=== PATIENT | female | born 1980 | race African-American/Black ===

== ENCOUNTER → 2017-05-05 | Day surgery (SDC) | payer OTHER ==
--- NOTE | 2017-04-28 10:16 | MH ---
cc: FAZAL WEBSTER DATE OF ADMISSION: 05/05/2017 DATE OF : 03/24 ADMITTING DIAGNOSIS: Condition is embedded intrauterine device. She is scheduled for removal under anesthesia. HISTORY OF PRESENT ILLNESS: The patient is a 37-year-old female P2 with Kori placed that is embed into the intrauterine cavity and causing her discomfort with intercourse this is confirmed on ultrasound. She is also having continued spotting. She is otherwise in excellent health other than she is on Synthroid 100 mics a day and has had endocrinopathies which is closely followed by Dr. Youngblood. She is currently a hospitalist and works long hours, takes care of her two children and she is to an orthopedic surgeon. She handles her stress and states is manageable at this time, she does not smoke, drink or use illicit drugs. FAMILY HISTORY: Family history is noncontributory. REVIEW OF SYSTEMS She has no complaints of any bowel or bladder. She does state that intercourse is uncomfortable. PHYSICAL EXAMINATION: VITAL SIGNS: On physical exam her height 5'5" Her weight is 144, blood pressure is 110/68. NECK: She has no thyroid enlargement. LUNGS: Her lungs are clear to auscultation and percussion. HEART: Rate and rhythm are regular without murmur, heave, thrill. ABDOMEN: Benign. GYNECOLOGY: Perineum is estrogenized, vault is elevated, cervix is multiparous. Uterus is small, the string is not seen. Ovaries are not palpable. IMPRESSION/PLAN At this time is embedded IUD that was not amendable to our office extraction, she is therefore scheduled to have this on either under MAC or general, her choice. The risks, benefits, expectations have been discussed in detail. She has signed consents and scheduled for this. MD SAVANNAH Ly/ /9:29 AM /9:37 AM
[~2017-05-05] MED LIST: ACETAMINOPHEN 1000 MG/100 ML 100 ML IV ONE; IBUP-232 PO; KETOROLAC TROMETHAMINE 30 MG/ML (IVP) VIAL IV PUSH ONE; LACTATED RINGER'S 1000 ML INJ 1,000 ML ONE; LEVO100T5 PO; MIDAZOLAM HCL 2 MG/2 ML VIAL ONE; ONDANSETRON HCL 4 MG/2 ML VIAL IV PUSH ONE; PROMETHAZINE INJ 25 MG/ML VIAL ONE; PROPOFOL 200 MG/20 ML AMP IV ONE; ceFAZolin INJ 1,000 MG VIAL ONE
--- NOTE | 2017-05-07 10:02 | MP ---
cc: DARINJANET DATE OF SURGERY: 05/05/2017 PREOPERATIVE DIAGNOSIS IUD imbedded into the myometrium but in the intrauterine cavity on ultrasound. POSTOPERATIVE DIAGNOSIS IUD perforating the uterus and in the abdominal cavity. PROCEDURE PERFORMED Diagnostic hysteroscopy and evaluation of the endometrium and diagnostic laparoscopy and removal of Mirena IUD through a 5-mm port. ANESTHESIA General endotracheal. SURGEON Janet Valentin MD WELDER REPAIR Kalyani. FINDINGS Examination under anesthesia showed an anteverted uterus with some mild bleeding. She had a multiparous cervix. Previously in the week prior she had a ultrasound that confirmed that the IUD was in the intrauterine cavity but it was sideways with one arm imbedded into the myometrium. She had an episode of heavy bleeding and the assumption is that this allowed the IUD to work its way through the myometrium entirely, killian the myometrium and end up in the peritoneal cavity. In the absence of seeing the IUD in the endometrial cavity a laparoscopy was performed which showed the IUD sitting on top of the fundus. It was easily grasped and removed through a 5-mm port. The estimated blood loss was negligible. Sponge, instrument, needle count were correct. She tolerated the procedure well and went to the recovery room stable. PROCEDURE The patient was identified as Audrey Lynn, her permit was reviewed with her in holding. She was taken to the operating room, placed under general endotracheal anesthesia in the dorsal lithotomy position. Examination under anesthesia was performed. The cervix was grasped with a tenaculum, dilated gently to allow the MyoSure hysteroscope into the intrauterine cavity. There the strings were seen coming out of the fundus but no IUD representing an IUD that was assumed to be embedded in the myometrium with the string still intrauterine in location. The strings were gently placed on traction and broke. Therefore, the attention was directed abdominally. She was reprepped and draped and then a 5 mm incision was made in the umbilicus with a second 5 mm incision in the suprapubic area. The trocar sleeves were placed into the intrauterine cavity and with the scope it was obvious that the IUD was on top of the fundus. It was grasped with graspers easily and removed. There was no evidence of other iatrogenic injury or bleeding or infection. The pneumoperitoneum at that point was released. She was placed in dorsal supine position and awoken up. Sponge, instrument, needle count were correct. Estimated blood loss was negligible. She tolerated the procedure well. Janet Valentin MD PPC/TLL /9:35 AM /9:41 AM
== END | disposition home or self-care (01) ==
LOC: ESDC 12:57
PROVIDERS: ATTEND Obstetrics & Gynecology
DX: T83.39XA Other mechanical complication of intrauterine contraceptive device, initial encounter (principal)
CPT/HCPCS: 00840; 00940; 49320; 58301; J0131; J0690; J1885; J2250; J2405; J2550; J3010; J7120